=== PATIENT | female | born 1995 | race Hispanic/Latino ===

== ENCOUNTER → 2023-04-17 | Outpatient (CLI) | payer BC ==
[~2023-04-17] MED LIST: GADOTERATE MEGLUMINE 10 MMOL/20 ML VIAL IV ONE; NORG1TAB75 PO
[2023-04-17 08:20] LABS: BASOPHILS % (AUTO) 0.6 % (0.0-5.0); EOSINOPHILS % (AUTO) 1.9 % (0.0-8.0); HEMATOCRIT 39.9 % (36-48); MEAN CORPUSCULAR HEMOGLOBIN 25.5 pg (27.0-33.0); MEAN CORPUSCULAR HGB CONC 31.3 g/dL (32.0-36.0); MEAN CORPUSCULAR VOLUME 81.4 fL (79-99); MONOCYTES % (AUTO) 6.6 % (3.0-13.0); NEUTROPHILS % (AUTO) 40.9 % (40.0-77.0); PLATELET COUNT (AUTO) 349 K/uL (130-400); WHITE BLOOD COUNT (AUTO) 4.7 K/uL (4.8-10.8)
[2023-04-17 08:31] LABS: % IRON SATURATION 8.8 % (22-44)
[2023-04-17 08:33] LABS: INR 0.93 (0.85-1.15); PROTHROMBIN TIME 10.1 SEC (9.6-11.6)
[2023-04-17 08:48] LABS: ALBUMIN 3.6 g/dL (3.5-5.0); CREATININE 0.7 mg/dL (0.5-1.5); POTASSIUM 3.7 mmol/L (3.5-5.1); TOTAL PROTEIN, SERUM 7.7 g/dL (6.0-8.3)
[2023-04-18 09:13] LABS: HEPATITIS A ANTIBODY TOTAL Positive (Negative)
[2023-04-20 09:09] LABS: HEPATITIS B SURFACE ANTIGEN Non-Reactive (Nonreactive); HEPATITIS C ANTIBODY Non-Reactive (Nonreactive)
== END | disposition home or self-care (01) ==
LOC: RAH 07:35
PROVIDERS: ATTEND Internal Medicine Gastroenterology
DX: K83.1 Obstruction of bile duct (principal); K76.0 Fatty (change of) liver, not elsewhere classified; R94.5 Abnormal results of liver function studies
CPT/HCPCS: 74183; 83540; 83550; 80053; 82728; 85025; 85610; 85730; 82390; 86038; 86706; 87340; 87520; 86376; 86708; 82784; 82787 ×2; 36415; 86015; 86381; A9575; 83516; 86215; 86235; 86255